=== PATIENT | male | born 1975 | race Caucasian/White ===

== ENCOUNTER 2019-07-26 20:28 | Emergency (ER) | payer SELFPAY ==
[2019-07-26] MEDS ORDERED: HALOPERIDOL LACTATE INJ 5 MG/1 ML VIAL IM ONE ×2 (20:56→21:02)
[2019-07-26] MEDS ORDERED: DIPHENHYDRAMINE HCL 50 MG/ML VIAL IM ONE ×2 (20:57→20:58)
[2019-07-26] MEDS ORDERED: LORAZEPAM INJ 2 MG/1 ML VIAL IM ONE ×2 (20:57→21:02)
[2019-07-26 21:56] LABS: ABSOLUTE EOSINOPHILS # (AUTO) 0.1 10^3/uL (0.0-0.6); ABSOLUTE LYMPHOCYTES (AUTO) 0.9 10^3/uL (0.5-4.7); ABSOLUTE MONOCYTES (AUTO) 0.7 10^3/uL (0.1-1.4); ABSOLUTE NEUT (AUTO) 12.3 10^3/uL (1.7-8.2); BASOPHILS % (AUTO) 0.3 % (0-2); EOSINOPHILS % (AUTO) 0.6 % (0-6); HEMATOCRIT 43.8 % (37.9-51.0); HEMOGLOBIN 14.6 g/dL (13.5-17.0); LYMPHOCYTES % (AUTO) 6.6 % (13-45); MEAN CORPUSCULAR HEMOGLOBIN 30.1 pg (27.0-33.4); MEAN CORPUSCULAR HGB CONC 33.4 g/dL (32.0-36.0); MEAN CORPUSCULAR VOLUME 90 fl (80-97); MONOCYTES % (AUTO) 5.1 % (3-13); PLATELET COUNT 168 10^3/uL (150-450); RED BLOOD COUNT 4.87 10^6/uL (4.35-5.55); SEGMENTED NEUTROPHILS % (AUTO) 87.4 % (42-78); TOTAL CELLS COUNTED % (AUTO) 100 %
[2019-07-26 22:13] LABS: ALBUMIN 4.5 g/dL (3.5-5.0); ALCOHOL 208 mg/dL (NONE DETECTED); ALKALINE PHOSPHATASE 89 U/L (38-126); ANION GAP 15 (5-19); ASPARTATE AMINO TRANSFERASE 34 U/L (17-59); BILIRUBIN,DIRECT 0.2 mg/dL (0.0-0.4); BILIRUBIN,TOTAL 0.3 mg/dL (0.2-1.3); BLOOD UREA NITROGEN 14 mg/dL (7-20); CALCIUM 9.3 mg/dL (8.4-10.2); CARBON DIOXIDE 20 mmol/L (22-30); CHLORIDE 109 mmol/L (98-107); GLUCOSE 96 mg/dL (75-110); POTASSIUM 4.3 mmol/L (3.6-5.0); TOTAL PROTEIN 7.1 g/dL (6.3-8.2)
[2019-07-26 22:14] LABS: ACETAMINOPHEN < 10 ug/mL (10-30); SALICYLATE < 1.0 mg/dL (2.0-20.0)
[2019-07-26 23:51] LABS: APPEARANCE,URINE CLEAR; BILIRUBIN,URINE NEGATIVE (NEGATIVE); COLOR,URINE YELLOW; GLUCOSE, URINE NEGATIVE (NEGATIVE); KETONES,URINE NEGATIVE (NEGATIVE); LEUKOCYTE ESTERASE,URINE NEGATIVE (NEGATIVE); NITRITE,URINE NEGATIVE (NEGATIVE); PROTEIN,URINE NEGATIVE (NEGATIVE); URINE SPECIFIC GRAVITY 1.011; UROBILINOGEN,URINE NEGATIVE mg/dL (<2.0)
[2019-07-27 00:05] LABS: URINE AMPHETAMINES SCREEN NEGATIVE; URINE BARBITURATES SCREEN NEGATIVE; URINE BENZODIAZEPINES SCREEN NEGATIVE; URINE COCAINE SCREEN NEGATIVE; URINE METHADONE SCREEN NEGATIVE; URINE PHENCYCLIDINE SCREEN NEGATIVE
[2019-07-27 00:10] LABS: URINE MARIJUANA (THC) SCREEN UNCONFIRMED POSITIVE
--- NOTE | 2019-07-27 01:21 | ER Document Report ---
Entered by LARRY ENGLAND SCRIBE 07/26/192057 Acting as scribe for:JHONY CHOWDARY IV, MD ED Psych Disorder / Suicide - General Information source: Patient <TINO BHARDWAJ - Last Filed: 07/27/19 07:44> - General Mode of Arrival: Medic Information source: Emergency Med Personnel Cannot obtain history due to: Intoxicated, Uncooperative <JHONY CHOWDARY IV - Last Filed: 07/28/19 02:32> - General Chief Complaint: Altered Mental Status Stated Complaint: AMS/ETOH Time Seen by Provider: 07/26/19 20:57 Notes: This 44 year old high intoxicated male patient presents to the emergency department today via EMS for complaints of acute alcohol intoxication. EMS reports that when they arrived on scene the patient was being detained by [facility]. EMS reports that [employer] was called because the patient was highly intoxicated and was threatening the people in the house he was staying at. According to EMS the "patient had a date tonight with a woman who lived in the house and he had been drinking heavily all day". The patient is verbally and physically abusive to staff including trying to spit on staff members. (JHONY CHOWDARY IV) Past Medical History - General Cannot obtain history due to: Intoxicated, Uncooperative - Social History Smoking Status: Unknown if Ever Smoked Frequency of alcohol use: Heavy Family History: Reviewed & Not Pertinent <JHONY CHOWDARY IV - Last Filed: 07/28/19 02:32> Review of Systems - Review of Systems -: Yes ROS unobtainable due to patient's medical condition <JHONY CHOWDARY IV - Last Filed: 07/28/19 02:32> Physical Exam - Vital signs Interpretation: Normal - General General appearance: Combative - HEENT Head: Normocephalic, Other - abrasion to left side of face Eyes: Normal Pupils: PERRL - Respiratory Respiratory status: No respiratory distress - Abdominal Inspection: Normal Distension: No distension Bowel sounds: Normal Tenderness: Nontender Organomegaly: No organomegaly - Extremities General upper extremity: Normal inspection. No: Edema General lower extremity: No: Edema, Irene's sign - Psychological Associated symptoms: Other - intoxicated, aggressive, combative - Skin Skin Temperature: Warm Skin Moisture: Dry Skin Color: Normal <JHONY CHOWDARY IV - Last Filed: 07/28/19 02:32> - Vital signs Vitals: Resp BP Pulse Ox 21 H 133/82 H 99 07/26/19 20:36 07/26/19 20:36 07/26/19 20:36 Course - Laboratory Result Diagrams: 07/26/19 21:40 07/26/19 21:40 <TINO BHARDWAJ - Last Filed: 07/27/19 07:44> - Laboratory Result Diagrams: 07/26/19 21:40 07/26/19 21:40 <JHONY CHOWDARY IV - Last Filed: 07/28/19 02:32> - Re-evaluation Re-evalutation: 07/27/19 07:44 Patient currently alert,and has no suicidal or homocidal thoughts, and has responsible person to transport him home this AM. (TINO BHARDWAJ) - Vital Signs Vital signs: Temp Pulse Resp BP Pulse Ox 17 135/84 H 97 07/27/19 02:45 07/27/19 02:45 07/27/19 02:45 - Laboratory Laboratory results interpreted by me: 07/26/19 07/26/19 21:40 21:40 WBC 14.0 H Lymph % (Auto) 6.6 L Absolute Neuts (auto) 12.3 H Seg Neutrophils % 87.4 H Chloride 109 H Carbon Dioxide 20 L Salicylates < 1.0 L Acetaminophen < 10 L - EKG Interpretation by Me Additional EKG results interpreted by me: 07/26/19 23:33 EKG obtained on 07/26/2019 at 2219 was interpreted by this MD. Findings: Normal sinus rhythm, rate 72, normal axis, P waves preceding QRS complexes, QRS complexes appear narrow, ST segments are nonspecific. Impression normal sinus rhythm with nonspecific ST segments (JHONY CHOWDARY IV) Discharge <TINO BHARDWAJ - Last Filed: 07/27/19 07:44> <JHONY CHOWDARY IV - Last Filed: 07/28/19 02:32> - Discharge Clinical Impression: Alcohol abuse, Marijuana smoker Condition: Stable Disposition: HOME, SELF-CARE Additional Instructions: You had acute alcohol intoxication, and also has marijuana in your system. Recommend you get counseling for help with substance abuse. You most likely will not necessarily have Alcohol Withdrawal. If there is this problem you should return to ED. Your symptoms are caused by alcohol withdrawal. After a period of frequent drinking, the brain and body are changed by the alcohol. When you quit or reduce your drinking, the nervous system becomes unstable. Withdrawal symptoms can start a few hours after your last drink, but sometimes don't begin until a couple of days later. Symptoms can include shakiness, sweating, insomnia, nausea, vomiting, fearfulness, hallucinations, and seizures. In addition to the acute effects of alcohol withdrawal, we often have to deal with the medical effects of alcoholism. These problems often include dehydration, stomach irritation, intestinal bleeding, low blood sugar, liver disease, and pancreas inflammation. Treatment for alcohol withdrawal includes mild sedatives, vitamins, and fluids. You need to be with someone who can help if symptoms become severe. Many patients can withdraw at home. Admission to the hospital or a detox facility may be necessary if withdrawal symptoms are severe and uncontrollable. Abstaining from alcohol is the only effective long-term treatment. If you start drinking again, you will not be able to control yourself after the first drink. Treatment programs are available. In addition, many alcoholics benefit from Alcoholics Anonymous or other support groups available through your counselor or protestant set up operator tool. [facility] and [facility] are support groups for friends and family members of an alcoholic. Go to the emergency room if you develop persistent vomiting, severe abdominal pain, fever, shortness of breath, hallucinations, uncontrollable tremors, or seizures. I personally performed the services described in the documentation, reviewed and edited the documentation which was dictated to the scribe in my presence, and it accurately records my words and actions.
[2019-07-27 02:50] VITALS: BP 135/84
--- NOTE | 2019-07-27 20:46 | EKG REPORT ---
SEVERITY:- ABNORMAL ECG - SINUS RHYTHM PROBABLE LEFT ATRIAL ABNORMALITY PROBABLE LEFT VENTRICULAR HYPERTROPHY ST ELEV, PROBABLE NORMAL EARLY REPOL PATTERN : Confirmed by: Stan Griggs 27-Jul-2019 20:45:32
== END 2019-07-27 08:21 | disposition home or self-care (01) ==
LOC: ER 20:28
DX: F10.10 Alcohol abuse, uncomplicated (principal); F12.90 Cannabis use, unspecified, uncomplicated; R41.82 Altered mental status, unspecified
CPT/HCPCS: 93005; 99285; 96372; 96374; 36415; 80307 ×4; 85025; 80053; 81001; 93010; J1200; J1630; J2060